=== PATIENT | male | born 1950 | race Caucasian/White ===

== ENCOUNTER 2017-08-20 01:23 | Inpatient (IN) | payer OTHER, MEDICARE ==
[2017-08-20] VITALS (16 sets, daily range): BP systolic 62–171; BP diastolic 25–97; PULSE 78–135; RESP 16–34; TEMP 98.4; O2SAT 0–99
[~2017-08-20] VITALS: Ht 172.7 cm; Wt 73.0 kg
[~2017-08-20 01:23] MED LIST: AMLO5 PO; CLON.5 PO; DIAZ5 PO; FOLI5CAP PO; GABA100C2 PO; LISI-360 PO; PERC5TAB12 PO; PRED5TAB PO; PRIL20CA PO; TAMS0.4C67 PO
[2017-08-20] MEDS ORDERED: SODIUM CHLOR 0.9% 1000 ML INJ 1,000 ML IV SCH ×2 (01:31→05:14)
[2017-08-20] MEDS ORDERED: PROPOFOL 500 MG/50 ML INJ 50 ML ONE (01:38)
[2017-08-20] MEDS ORDERED: NOREPINEPHRINE 4 MG/4 ML AMP ONE (01:45)
[2017-08-20] MEDS ORDERED: SODIUM CHLORIDE 0.9% FLUSH 10 ML FLUSH IV FLUSH PRN ×2 (01:45→05:15)
[2017-08-20] MEDS ORDERED: SODIUM CHLORIDE 0.9% FLUSH 10 ML FLUSH IVF PRN (01:45)
[2017-08-20 02:11] LABS: AUTOMATED NEUTROPHIL # 16.4 TH/MM3 (1.8-7.7); BASOPHIL % 0.2 % (0.0-2.0); EOSINOPHIL # 0.3 TH/MM3 (0-0.4); EOSINOPHIL % 1.3 % (0.0-4.0); HEMATOCRIT 36.7 % (39.0-51.0); HEMOGLOBIN 11.7 GM/DL (13.0-17.0); LYMPHOCYTE # 1.6 TH/MM3 (1.0-4.8); MEAN CELL VOLUME 88.7 FL (80.0-100.0); MEAN CORPUSCULAR HEMOGLOBIN 28.1 PG (27.0-34.0); MEAN CORPUSCULAR HGB CONC 31.7 % (32.0-36.0); MEAN PLATELET VOLUME 11.3 FL (7.0-11.0); MONO % 8.5 % (0.0-8.0); MONOCYTE # 1.7 TH/MM3 (0-0.9); PLATELET COUNT 96 TH/MM3 (150-450); RED BLOOD COUNT 4.14 MIL/MM3 (4.50-5.90); RED CELL DISTRIBUTION WIDTH 16.9 % (11.6-17.2)
[2017-08-20] MEDS ORDERED: SODIUM BICARBONATE 8.4% INJ 50 MEQ/50 ML SYR IV PUSH ONE (02:15)
[2017-08-20] MEDS ORDERED: VANCOMYCIN INJ 1,750 MG in SODIUM CHLORID 0.9% 500 ML INJ 500 ML IV ONE (02:15)
[2017-08-20] MEDS ORDERED: CEFEPIME INJ 2,000 MG in SODIUM CHLORIDE 0.9% INJ 100 ML IV ONE (02:15)
--- NOTE | 2017-08-20 02:41 | RADRPT ---
EXAM DATE/TIME: 08/20/2017 02:12 [facility] COMPARISON: CHEST SINGLE AP, October 06, 2014, 22:19. INDICATIONS : Post intubation and post central line placement. MEDICAL HISTORY : SURGICAL HISTORY : Non-responsive. ENCOUNTER: Initial ACUITY: 1 day PAIN SCORE: Non-responsive. LOCATION: Bilateral chest FINDINGS: A single view of the chest demonstrates an endotracheal tube in good position. NG in stomach. Right c entral line in superior vena cava. Minimal dependent atelectasis. No pneumothorax or effusion. No con solidation. CONCLUSION: 1. Endotracheal tube and right central line in good position as above. No focal infiltrate. No pneumo thorax. Jeremy Garcia MD on August 20, 2017 at 2:37 Board Certified Radiologist. This report was verified electronically.
[2017-08-20 02:46] LABS: ALBUMIN 1.2 GM/DL (3.4-5.0); ALT (GPT) 691 U/L (12-78); BICARBONATE 12.6 MEQ/L (21.0-32.0); BLOOD UREA NITROGEN 121 MG/DL (7-18); CALCIUM 7.3 MG/DL (8.5-10.1); CHLORIDE 107 MEQ/L (98-107); CREATININE 3.86 MG/DL (0.60-1.30); GLOMERULAR FILTRATION RATE 16 ML/MIN (>89); GLUCOSE,RANDOM 67 MG/DL (74-106); SODIUM (NA) 146 MEQ/L (136-145)
[2017-08-20 02:51] LABS: LACTIC ACID SEPSIS PROTOCOL 11.9 mmol/L (0.4-2.0)
[2017-08-20 03:02] LABS: ALKALINE PHOSPHATASE 79 U/L (45-117); AST (GOT) 2743 U/L (15-37); TOTAL BILIRUBIN ADULT 0.9 MG/DL (0.2-1.0); TOTAL PROTEIN 5.8 GM/DL (6.4-8.2)
--- NOTE | 2017-08-20 03:18 | PD ---
HPI Chief Complaint: Altered Mental Status Time Seen by Provider: 01:28 Travel History International Travel<30 days: No (gertrude) Contact w/Intl Traveler<30days: No (GERTRUDE ) Traveled to known affect area: No (gertrude) History of Present Illness HPI The patient 67 years old. He arrives by EMS. The story is very limited. He lives in a long-term hotel on each side. 911 was called by the residential care facility manager. The patient was found unresponsive in his bathroom evidently by visiting friends. It is unknown when he was last seen normal. PD reports the patient's acquaintances were suspicious for drug abuse. PD notes there was no drug paraphernalia or drug seen in the residents. EMS gave Narcan and there was no response. The patient had a pulse throughout the episode. His GCS was 3 throughout the prehospital course. The patient was intubated in field. Heart rate was approximately 100-120 in route here. No blood pressure was obtainable in route. Pt had a pulse throughout transport. A 7 5 endotracheal tube was positioned without difficulty. The patient upon arrival to the ED was found to have intact endotracheal tube with breath sounds present bilaterally. Pulse was about 110. First blood pressure was 70/40. PFSH Past Medical History Medical History: Unable to Obtain Anemia: Yes (LOW IRON AND LOW B12) Anxiety: Yes Cirrhosis: No COPD: Yes Cerebrovascular Accident: No Diminished Hearing: No GERD: Yes Hepatitis: Yes (C) Hypertension: Yes Kidney Stones: Yes Myocardial Infarction: No Past Surgical History Surgical History: Unable to Obtain Other Surgery: Yes (LITHOTRIPSY ) Social History Alcohol Use: Yes (2 SHOTS AT LUNCH 10/03/14) Tobacco Use: Yes (20 CIGS EVERY 3 DAYS) Substance Use: No (UTO) Allergies-Medications (Allergen,Severity, Reaction): Coded Allergies: No Allergy Information Available (Unverified , 08/20/17) Reported Meds & Prescriptions Reported Meds & Active Scripts Active Valium (Diazepam) 5 Mg Tab 5 Mg PO QID PRN Percocet 5-325 mg (Oxycodone/Acetaminophen) Oxycodone 5/325 Acetaminophen Tab 1- 2 Tab PO Q4H PRN Percocet 5-325 mg (Oxycodone/Acetaminophen) Oxycodone 5/325 Acetaminophen Tab 1 Tab PO Q6H PRN Reported Norvasc (Amlodipine Besylate) 5 Mg Tab 5 Mg PO DAILY Prednisone 5 Mg Tab 0.5 Tab PO DAILY Folic Acid 5 Mg Cap 1 Cap PO DAILY Klonopin (Clonazepam) 0.5 Mg Tab 0.5 Mg PO HS Neurontin 100 mg Cap (Gabapentin) 100 Mg Cap 250 Mg PO BID Flomax (Tamsulosin HCl) 0.4 Mg Cap 0.4 Mg PO DAILY Prilosec 20 mg (Omeprazole) 20 Mg Cap 20 Mg PO DAILY Lisinopril 10 mg (Lisinopril) 10 Mg Tab 1 Tab PO DAILY Review of Systems ROS Limitations: Intubated Physical Exam Narrative GENERAL: 67-year-old male well-nourished well-developed GCS 3 T SKIN: Warm and dry. HEAD: Atraumatic. Normocephalic. EYES: Pupils equal and round. No scleral icterus. No injection or drainage. ENT: No nasal bleeding or discharge. Mucous membranes pink and moist. NECK: Trachea midline. No JVD. CARDIOVASCULAR: Regular rate and rhythm. RESPIRATORY: No accessory muscle use. Clear to auscultation. Breath sounds equal bilaterally. GASTROINTESTINAL: Abdomen soft, non-tender, nondistended. Hepatic and splenic margins not palpable. MUSCULOSKELETAL: Extremities without clubbing, cyanosis, or edema. No obvious deformities. NEUROLOGICAL: Awake and alert. No obvious cranial nerve deficits. Motor grossly within normal limits. Five out of 5 muscle strength in the arms and legs. Normal speech. PSYCHIATRIC: Appropriate mood and affect; insight and judgment normal. Data Data Last Documented VS Vital Signs Date Time Temp Pulse Resp B/P (MAP) Pulse Ox O2 Delivery O2 Flow Rate FiO2 08/20/17 02:44 135 171/89 (116) 08/20/17 02:13 16 08/20/17 02:06 98.4 08/20/17 02:00 100 08/20/17 01:55 97 Ventilator Orders Orders Chest, Single Ap (08/20/17 01:31) Arterial Blood Gas (Abg) (08/20/17 01:31) Ecg Monitoring (08/20/17 01:31) Iv Access Insert/Monitor (08/20/17 01:31) Ng Gastric Tube Insert/Monitor (08/20/17 01:31) Urinary Catheter Insert/Apply (08/20/17 01:31) Oximetry (08/20/17 01:31) Oxygen Administration (08/20/17:31) Sodium Chloride 0.9% Flush (Ns Flush) (08/20/17 01:45) Electrocardiogram (08/20/17:31) Complete Blood Count With Diff (08/20/17:31) Comprehensive Metabolic Panel (08/20/17:) Creatine Kinase (Cpk) (08/20/17:31) Prothrombin Time / Inr (Pt) (08/20/17:31) Act Partial Throm Time (Ptt) (08/20/17:31) Troponin I (08/20/17:) Thyroid Stimulating Hormone (08/20/17:31) Urinalysis - C+S If Indicated (08/20/17:) Lactic Acid Sepsis Protocol (08/20/17:) Blood Culture (08/20/17:) Ct Brain W/O Iv Contrast(Rout) (08/20/17:31) Sodium Chloride 0.9% Flush (Ns Flush) (08/20/17 01:45) Sodium Chlor 0.9% 1000 Ml Inj (Ns 1000 M (08/20/17 01:31) Drug Screen, Random Urine (08/20/17:31) Alcohol (Ethanol) (08/20/17:31) Propofol 500 Mg/50 Ml Inj (Diprivan 500 (08/20/17 01:38) Norepinephrine Inj (Levophed Inj) (08/20/17 01:45) Sodium Bicarbonate 8.4% Inj (Sodium Bica (08/20/17 02:15) Cefepime Inj (Maxipime Inj) (08/20/17 02:15) Vancomycin Inj (Vancomycin Inj) (08/20/17 02:15) Lactated Ringer's 1000 Ml Inj (Lr 1000 M (08/20/17 03:30) Lactated Ringer's 1000 Ml Inj (Lr 1000 M (08/20/17 03:30) Admit Order (Ed Use Only) (08/20/17 ) Licensed Club Manager / Telemetry CALI.Q8H (08/20/17 03:19) Vital Signs (Adult) Q4H (08/20/17 03:19) Diet Npo (08/20/17 Breakfast) Activity Bed Rest (08/20/17 03:19) Notify Dr: Other (08/20/17 03:19) CKMB (08/20/17 01:55) CKMB% (08/20/17 01:55) Labs Laboratory Tests Test 08/20/17 01:55 08/20/17 01:58 White Blood Count 20.0 TH/MM3 Red Blood Count 4.14 MIL/MM3 Hemoglobin 11.7 GM/DL Hematocrit 36.7 % Mean Corpuscular Volume 88.7 FL Mean Corpuscular Hemoglobin 28.1 PG Mean Corpuscular Hemoglobin Concent 31.7 % Red Cell Distribution Width 16.9 % Platelet Count 96 TH/MM3 Mean Platelet Volume 11.3 FL Neutrophils (%) (Auto) 82.0 % Lymphocytes (%) (Auto) 8.0 % Monocytes (%) (Auto) 8.5 % Eosinophils (%) (Auto) 1.3 % Basophils (%) (Auto) 0.2 % Neutrophils # (Auto) 16.4 TH/MM3 Lymphocytes # (Auto) 1.6 TH/MM3 Monocytes # (Auto) 1.7 TH/MM3 Eosinophils # (Auto) 0.3 TH/MM3 Basophils # (Auto) 0.0 TH/MM3 CBC Comment AUTO DIFF Differential Total Cells Counted 100 Neutrophils % (Manual) 38 % Band Neutrophils % 31 % Lymphocytes % 6 % Monocytes % 9 % Neutrophils # (Manual) 17.0 TH/MM3 Metamyelocytes 14 % Promyelocytes 2 % Nucleated Red Blood Cells 1 /100 WBC Differential Comment FINAL DIFF MANUAL Toxic Granulation 1+ Toxic Vacuolation PRESENT Dohle Bodies PRESENT Platelet Estimate LOW Platelet Morphology Comment ENLARGED Vincent Cells 2+ Acanthocytes OCC Keratocytes OCC Prothrombin Time 13.4 SEC Prothromb Time International Ratio 1.3 RATIO Activated Partial Thromboplast Time 32.4 SEC Blood Urea Nitrogen 121 MG/DL Creatinine 3.86 MG/DL Random Glucose 67 MG/DL Total Protein 5.8 GM/DL Albumin 1.2 GM/DL Calcium Level 7.3 MG/DL Alkaline Phosphatase 79 U/L Aspartate Amino Transf (AST/SGOT) 2743 U/L Alanine Aminotransferase (ALT/SGPT) 691 U/L Total Bilirubin 0.9 MG/DL Sodium Level 146 MEQ/L Potassium Level 5.0 MEQ/L Chloride Level 107 MEQ/L Carbon Dioxide Level 12.6 MEQ/L Anion Gap 26 MEQ/L Estimat Glomerular Filtration Rate 16 ML/MIN Lactic Acid Level 11.9 mmol/L Protein Corrected Calcium 8.0 MG/DL Total Creatine Kinase 6330 U/L Creatine Kinase MB 107.1 NG/ML Creatine Kinase MB % 1.7 % Troponin I 1.18 NG/ML Thyroid Stimulating Hormone 3rd Gen 0.617 uIU/ML Ethyl Alcohol Level LESS THAN 3 MG/DL Blood Gas Puncture Site RT FEMORAL Blood Gas Patient Temperature 98.6 Blood Gas HCO3 13 mmol/L Blood Gas Base Excess -14.6 mmol/L Blood Gas Oxygen Saturation 71 % Arterial Blood pH 7.09 Arterial Blood Partial Pressure CO2 46 mmHg Arterial Blood Partial Pressure O2 60 mmHG Arterial Blood Oxygen Content 9.9 Vol % Arterial Blood Carboxyhemoglobin 0.0 % Arterial Blood Methemoglobin 0.6 % Blood Gas Hemoglobin 9.8 G/DL Oxygen Delivery Device VENTILATOR Blood Gas Ventilator Setting Blood Gas Inspired Oxygen 100 % [facility] Medical Decision Making Medical Screen Exam Complete: Yes Emergency Medical Condition: Yes Medical Record Reviewed: Yes Differential Diagnosis Infection, cardiac arrest, multiorgan dysfunction syndrome, drug overdose Narrative Course CBC & BMP Diagram 08/20/17 01:55 31% bands Total Protein 5.8 L, Albumin 1.2 L, Calcium Level 7.3 *L, Alkaline Phosphatase 79, Aspartate Amino Transf (AST/SGOT) 2743 H, Alanine Aminotransferase (ALT/SGPT ) 691 H, Total Bilirubin 0.9 Lactic acid 11.9 Troponin is 1.18 Alcohol is less than 3 7. BE -14, pO2 60 = VBG results CK is 6,330 4 L IV fluids, 2 normal saline, 2 lactated Ringer's Patient started on Levophed drip 100 milliequivalents sodium bicarb administered Right internal jugular triple-lumen started Patient has not made urine Cefepime and vancomycin started Blood cultures drawn EKG reveals ST depressions in multiple anteriorly, rate 130 Last Impressions Chest X-Ray 08/20/17 0131 Signed Impressions: Service Date/Time: Sunday, August 20, 2017 02:12 - CONCLUSION: 1. Endotracheal tube and right central line in good position as above. No focal infiltrate. No pneumothorax. Jeremy Garcia MD Patient will be admitted to the cardiac cath tech service. Discussed with Dr. Meza. Critical Care Narrative Aggregate critical care time was 50 minutes. Time to perform other separately billable procedures was not included in the critical care time. My time did not include minutes spent treating any other patients simultaneously or on activities that did not directly contribute to the patient's treatment. The services I provided to this patient were to treat and/or prevent clinically significant deterioration that could result in: Cardiopulmonary arrest, fatality I provided critical care services requiring my management, as noted below: Chart data review, documentation time, medication orders and management, vital sign assessments/reviewing monitor data, ordering and reviewing lab tests, ordering and interpreting/reviewing x-rays and diagnostic studies, care of the patient and discussion of the patient with the admitting physicians. Procedures Procedure Narrative After the risks and benefits were discussed the following procedure was performed: CENTRAL VENOUS LINE: The site was prepped with Betadine and sterilely draped. It was infiltrated with 1% lidocaine plain. The deep vein was cannulated using normal Seldinger technique. A central line was placed in the right IJ site and secured with simple interrupted suture. The site was sterilely dressed. The patient tolerated the procedure well. Sepsis Criteria SIRS Criteria (2 or more): Heart rate over 90, WBC > 80181, < 4000 or > 10% bands Sepsis Criteria (SIRS+source): Infect source susp/known Severe Sepsis (+one): Lactate >2 Septic Shock Criteria: Lactic acid >=4 Multiple Organ Dysfunction Syn: Evidence -2 organs failing Criteria Outcome: Meets multiple organ dys. criteria Diagnosis Primary Impression: Sepsis with multiple organ dysfunction (MOD) Additional Impressions: Respiratory arrest Renal failure Qualified Codes: N19 - Unspecified kidney failure Admitting Information Admitting Physician Requests: Admit Kody Chung MD August 20, 2017 03:18
[2017-08-20 03:21] LABS: TROPONIN I 1.18 NG/ML (0.02-0.05)
[2017-08-20 03:26] LABS: BANDS 31 % (0-6); CORRECTED NUCLEATED RBC 1 /100 WBC (0-0); LYMPHOCYTES 6 % (9-44); METAMYELOCYTES 14 % (0-1); MONOCYTES 9 % (0-8); NUCLEATED RED BLOOD CELL 1 (0-0); POLYS (SEG NEUTROPHILS) 38 % (16-70); PROMYELOCYTES 2 % (0-0)
[2017-08-20 03:28] LABS: BURR CELLS 2+ (NORMAL)
[2017-08-20 03:29] LABS: DOHLE BODIES PRESENT (NONE SEEN); TOXIC GRANULATION 1+ (NORMAL)
[2017-08-20 03:30] LABS: ACANTHOCYTES OCC (NORMAL); KERATOCYTES OCC (NORMAL); TOXIC VACUOLATION PRESENT (NONE SEEN)
[2017-08-20] MEDS ORDERED: LACTATED RINGER'S 1000 ML INJ 1,000 ML IV ONE ×2 (03:30)
[2017-08-20 04:15] LABS: INTERNATIONAL NORMALIZED RATIO 1.3 RATIO; PROTHROMBIN TIME - PATIENT 13.4 SEC (9.8-11.6)
[2017-08-20] MEDS ORDERED: TERBUTALINE INJ 1 MG/ML AMP SQ PRN ×2 (05:00→08:45)
[2017-08-20] MEDS ORDERED: PROPOFOL 200 MG/20 ML AMP IV ONE (05:00)
[2017-08-20] MEDS ORDERED: NOREPINEPHRINE-DEXTROSE DRIP 250 ML IV PRN (05:00)
[2017-08-20] MEDS ORDERED: MIDAZOLAM HCL 2 MG/2 ML VIAL IV PUSH PRN (05:15)
[2017-08-20] MEDS ORDERED: LACTULOSE SYRUP 20 GM/30 ML CUP PO PRN (05:15)
[2017-08-20] MEDS ORDERED: SENNOSIDES 8.6 MG TAB PO PRN (05:15)
[2017-08-20] MEDS ORDERED: RESP: ALBUTEROL 2.5 MG/IPRATROPIUM 0.5 MG NEB (PRN) INH (05:15)
[2017-08-20] MEDS ORDERED: MAGNESIUM HYDROXIDE SUSP 30 ML CUP PO PRN (05:15)
[2017-08-20] MEDS ORDERED: ONDANSETRON ODT 4 MG TAB PO PRN (05:15)
[2017-08-20] MEDS ORDERED: BISACODYL 10 MG SUPP RECTAL PRN (05:15)
[2017-08-20] MEDS ORDERED: PROPOFOL 1000 MG/100 ML INJ 100 ML IV PRN (05:15)
[2017-08-20] MEDS ORDERED: CHLORHEXIDINE GLUCONATE 2 % 1 PACK (2 CLOTHS) TOP PRN (05:15)
[2017-08-20] MEDS ORDERED: NURSING INFORMATION XX SCH (05:15)
[2017-08-20] MEDS ORDERED: ACETAMINOPHEN 325 MG TAB PO PRN (05:15)
--- NOTE | 2017-08-20 05:30 | RADRPT ---
EXAM DATE/TIME: 08/20/2017 05:01 [facility] COMPARISON: No previous studies available for comparison. INDICATIONS : Unresponsive; post code. RADIATION DOSE: 56.35 CTDIvol (mGy) MEDICAL HISTORY : Non-responsive. SURGICAL HISTORY : Non-responsive. ENCOUNTER: Initial ACUITY: 1 day PAIN SCALE: Non-responsive LOCATION: cranial TECHNIQUE: Multiple contiguous axial images were obtained of the head. Using automated exposure control and adj ustment of the mA and/or kV according to patient size, radiation dose was kept as low as reasonably a chievable to obtain optimal diagnostic quality images. DICOM format image data is available electro nically for review and comparison. FINDINGS: No prior study for comparison. There is a 2.8 cm hemorrhage in the left parieto-occipital region with surrounding wedge-shaped low attenuation areas characteristic of infarction which measures up to abo ut 7.6 x 2.9 cm in maximal dimension. There is also some intraventricular hemorrhage measuring about 1 cm in the area of foramen of [place]. There is also faint hemorrhage in the left cerebellar hemisphere measuring 1.4 cm. No significant mas s effect or midline shift. On the right side date is a more linear area of decreased attenuation in the posterior MCA distributi on, probably subacute infarct. CONCLUSION: 1. Subacute hemorrhagic infarct in the left parieto-occipital region as above. Smaller infarct in the posterior right MCA distribution. Probable small hemorrhagic infarct left cerebellar hemisphere. Sma ll amount of intraventricular hemorrhage. Jeremy Garcia MD on August 20, 2017 at 5:24 Board Certified Radiologist. This report was verified electronically.
--- NOTE | 2017-08-20 05:33 | HHI.HP ---
HPI Service Critical Care Medicine Primary Care Physician No Primary Care Physician Admission Diagnosis Respiratory Arrest; AMS; Renal Failure Diagnosis: Travel History International Travel<30 Days: No (leodan) Contact w/Intl Traveler <30 Da: No (LEODAN ) Traveled to Known Affected Are: No (leodan) History of Present Illness 67 years old man who lives in a long-term hotel was found unresponsive. 911 was called by the facility operations manager. The patient was found unresponsive in his bathroom by visiting friends. It is unknown when he was last seen normal. Police Department reports the patient's acquaintances were suspicious for drug abuse. However there was no drug paraphernalia or drug seen in the residents. EMS gave Narcan without any response. The patient had a pulse throughout the episode. His GCS was 3 throughout the prehospital course. He was intubated in field. Heart rate was approximately 100-120 in route here. No blood pressure was obtainable in route. A 7 5 endotracheal tube was positioned without difficulty by EMT. Review of Systems ROS Unobtainable patient's intubated and comatose Past Family Social History Allergies: Coded Allergies: No Allergy Information Available (Unverified , 08/20/17) Past Medical History Anemia: Yes (LOW IRON AND LOW B12) Anxiety: Yes COPD: Yes GERD: Yes Hepatitis: Yes (C) Hypertension: Yes Kidney Stones: Yes Past Surgical History Other Surgery: Yes (LITHOTRIPSY ) Reported Medications Reported Meds & Active Scripts Active Valium (Diazepam) 5 Mg Tab 5 Mg PO QID PRN Percocet 5-325 mg (Oxycodone/Acetaminophen) Oxycodone 5/325 Acetaminophen Tab 1- 2 Tab PO Q4H PRN Percocet 5-325 mg (Oxycodone/Acetaminophen) Oxycodone 5/325 Acetaminophen Tab 1 Tab PO Q6H PRN Reported Norvasc (Amlodipine Besylate) 5 Mg Tab 5 Mg PO DAILY Prednisone 5 Mg Tab 0.5 Tab PO DAILY Folic Acid 5 Mg Cap 1 Cap PO DAILY Klonopin (Clonazepam) 0.5 Mg Tab 0.5 Mg PO HS Neurontin 100 mg Cap (Gabapentin) 100 Mg Cap 250 Mg PO BID Flomax (Tamsulosin HCl) 0.4 Mg Cap 0.4 Mg PO DAILY Prilosec 20 mg (Omeprazole) 20 Mg Cap 20 Mg PO DAILY Lisinopril 10 mg (Lisinopril) 10 Mg Tab 1 Tab PO DAILY Active Ordered Medications Current Medications Medications (Trade) Dose Ordered Sig/Magalys Route PRN Reason Start Time Stop Time Status Last Admin Dose Admin Sodium Chloride (NS Flush) 2 ml UNSCH PRN IVF FLUSH AFTER USING IV ACCESS 08/20/17 01:45 08/20/17 02:17 Sodium Chloride (NS Flush) 2 ml UNSCH PRN IV FLUSH FLUSH AFTER USING IV ACCESS 08/20/17 01:45 08/20/17 02:17 Norepinephrine Bitartrate 250 ml @ 7.5 mls/hr TITRATE PRN IV Blood pressure management 08/20/17 05:00 Terbutaline Sulfate (Brethine Inj) 1 mg UNSCH PRN SQ For Extravasation 08/20/17 05:00 Family History Unobtainable Social History Alcohol Use: Yes (2 SHOTS AT LUNCH 10/03/14) Tobacco Use: Yes (20 CIGS EVERY 3 DAYS) Substance Use: No (UTO) Physical Exam Vital Signs Vital Signs Date Time Temp Pulse Resp B/P (MAP) Pulse Ox O2 Delivery O2 Flow Rate FiO2 08/20/17 05:05 100 08/20/17 05:00 0 100 08/20/17 04:20 120 16 105/67 (80) Ventilator 08/20/17 04:20 118 100/57 (71) 08/20/17 03:37 95 18 86/48 (61) 08/20/17 02:44 135 171/89 (116) 08/20/17 02:30 117 163/65 (97) 08/20/17 02:13 123 16 99/65 (76) 08/20/17 02:06 98.4 111 92/53 (66) 08/20/17 02:00 100 08/20/17 01:55 120 18 72/34 (47) 97 Ventilator 100 08/20/17 01:38 123 18 62/25 (37) 95 Ventilator 100 08/20/17 01:26 133 91 08/20/17 01:20 0 100 Physical Exam GENERAL: Elderly appearing male, well-nourished well-developed SKIN: Warm and dry. HEAD: Atraumatic. Normocephalic. EYES: Pupils equal and round. No scleral icterus. No injection or drainage. ENT: No nasal bleeding or discharge. Mucous membranes pink and moist. NECK: Trachea midline. No JVD. CARDIOVASCULAR: Regular rate and rhythm. RESPIRATORY: No accessory muscle use. Clear to auscultation. Breath sounds equal bilaterally. GASTROINTESTINAL: Abdomen soft, non-tender, nondistended. Hepatic and splenic margins not palpable. MUSCULOSKELETAL: Extremities without clubbing, cyanosis, or edema. No obvious deformities. NEUROLOGICAL: GCS 3 T, sedated and intubated Laboratory Laboratory Tests Test 08/20/17 01:55 08/20/17 01:58 08/20/17 04:15 08/20/17 04:45 White Blood Count 20.0 Red Blood Count 4.14 Hemoglobin 11.7 Hematocrit 36.7 Mean Corpuscular Volume 88.7 Mean Corpuscular Hemoglobin 28.1 Mean Corpuscular Hemoglobin Concent 31.7 Red Cell Distribution Width 16.9 Platelet Count 96 Mean Platelet Volume 11.3 Neutrophils (%) (Auto) 82.0 Lymphocytes (%) (Auto) 8.0 Monocytes (%) (Auto) 8.5 Eosinophils (%) (Auto) 1.3 Basophils (%) (Auto) 0.2 Neutrophils # (Auto) 16.4 Lymphocytes # (Auto) 1.6 Monocytes # (Auto) 1.7 Eosinophils # (Auto) 0.3 Basophils # (Auto) 0.0 CBC Comment AUTO DIFF Differential Total Cells Counted 100 Neutrophils % (Manual) 38 Band Neutrophils % 31 Lymphocytes % 6 Monocytes % 9 Neutrophils # (Manual) 17.0 Metamyelocytes 14 Promyelocytes 2 Nucleated Red Blood Cells 1 Differential Comment FINAL DIFF MANUAL Toxic Granulation 1+ Toxic Vacuolation PRESENT Dohle Bodies PRESENT Platelet Estimate LOW Platelet Morphology Comment ENLARGED Kirk Cells 2+ Acanthocytes OCC Keratocytes OCC Prothrombin Time 13.4 Prothromb Time International Ratio 1.3 Activated Partial Thromboplast Time 32.4 Blood Urea Nitrogen 121 Creatinine 3.86 Random Glucose 67 Total Protein 5.8 Albumin 1.2 Calcium Level 7.3 Alkaline Phosphatase 79 Aspartate Amino Transf (AST/SGOT) 2743 Alanine Aminotransferase (ALT/SGPT) 691 Total Bilirubin 0.9 Sodium Level 146 Potassium Level 5.0 Chloride Level 107 Carbon Dioxide Level 12.6 Anion Gap 26 Estimat Glomerular Filtration Rate 16 Lactic Acid Level 11.9 10.8 Protein Corrected Calcium 8.0 Total Creatine Kinase 6330 Creatine Kinase MB 107.1 Creatine Kinase MB % 1.7 Troponin I 1.18 Thyroid Stimulating Hormone 3rd Gen 0.617 Ethyl Alcohol Level LESS THAN 3 Blood Gas Puncture Site RT FEMORAL RT FEMORAL Blood Gas Patient Temperature 98.6 98.6 Blood Gas HCO3 13 12 Blood Gas Base Excess -14.6 -13.2 Blood Gas Oxygen Saturation 71 99 Arterial Blood pH 7.09 7.28 Arterial Blood Partial Pressure CO2 46 27 Arterial Blood Partial Pressure O2 60 413 Arterial Blood Oxygen Content 9.9 15.9 Arterial Blood Carboxyhemoglobin 0.0 0.0 Arterial Blood Methemoglobin 0.6 0.7 Blood Gas Hemoglobin 9.8 10.7 Oxygen Delivery Device VENTILATOR VENTILATOR Blood Gas Ventilator Setting Blood Gas Inspired Oxygen 100 100 Date/Time Source Procedure Growth Status 08/20/17 01:56 Blood Peripheral Aerobic Blood Culture Pending Received 08/20/17 01:56 Blood Peripheral Anaerobic Blood Culture Pending Received Result Diagram: 08/20/17 0155 08/20/17 0155 Imaging Last 24 hours Impressions Chest X-Ray 08/20/17 0131 Signed Impressions: Service Date/Time: Sunday, August 20, 2017 02:12 - CONCLUSION: 1. Endotracheal tube and right central line in good position as above. No focal infiltrate. No pneumothorax. Jeremy Garcia MD Caprini VTE Risk Assessment Caprini VTE Risk Assessment: Mod/High Risk (score >= 2) Caprini Risk Assessment Model Point Value = 1 Point Value = 2 Point Value = 3 Point Value = 5 Age 41-60 Minor surgery BMI > 25 kg/m2 Swollen legs Varicose veins or History of unexplained or recurrent spontaneous Oral contraceptives or hormone replacement Sepsis (< 1 month) Serious lung disease, including pneumonia (< 1 month) Abnormal pulmonary function Acute myocardial infarction Congestive heart failure (< 1 month) History of inflammatory bowel disease Medical patient at bed rest Age 61-74 Arthroscopic surgery Major open surgery (> 45 min) Laparoscopic surgery (> 45 min) Malignancy Confined to bed (> 72 hours) Immobilizing plaster cast Central venous access Age >= 75 History of VTE Family history of VTE Factor V Leiden Prothrombin [id number] Lupus anticoagulant Anticardiolipin antibodies Elevated serum homocysteine Heparin-induced thrombocytopenia Other congenital or acquired thrombophilia Stroke (< 1 month) Elective arthroplasty Hip, pelvis, or leg fracture Acute spinal cord injury (< 1 month) Prophylaxis Regimen Total Risk Factor Score Risk Level Prophylaxis Regimen 0-1 Low Early ambulation 2 Moderate Order ONE of the following: *Sequential Compression Device (SCD) *Heparin 5000 units SQ BID 3-4 Higher Order ONE of the following medications: *Heparin 5000 units SQ TID *Enoxaparin/Lovenox 40 mg SQ daily (WT < 150 kg, CrCl > 30 mL/min) *Enoxaparin/Lovenox 30 mg SQ daily (WT < 150 kg, CrCl > 10-29 mL/min) *Enoxaparin/Lovenox 30 mg SQ BID (WT < 150 kg, CrCl > 30 mL/min) AND/OR *Sequential Compression Device (SCD) 5 or more Highest Order ONE of the following medications: *Heparin 5000 units SQ TID (Preferred with Epidurals) *Enoxaparin/Lovenox 40 mg SQ daily (WT < 150 kg, CrCl > 30 mL/min) *Enoxaparin/Lovenox 30 mg SQ daily (WT < 150 kg, CrCl > 10-29 mL/min) *Enoxaparin/Lovenox 30 mg SQ BID (WT < 150 kg, CrCl > 30 mL/min) AND *Sequential Compression Device (SCD) Assessment and Plan Assessment and Plan Respiratory failure -Intubated for an airway protection -No weaning until neurologically improve -Vent bundle -DuoNeb's as needed Altered mental status hemorrhagic conversion of left MCA stroke Possible anoxic brain damage -unknown downtime -Coags within normal limits -Transfuse platelets to keep count above 100 -SBP goal less than 140 -Neurosurgery consultation -No surgical interventions indicated at this time -Drug screen pending -Not a candidate for TPA due to unknown downtime and ICH -Neuro checks per unit protocol -Neurology consultation Hypertension -Labetalol and hydralazine to keep his BP less than 140 Rhabdomyolysis -Monitor trend of CPK -Sodium bicarbonate drip for urine alkalinization Metabolic acidosis -Frequent ABGs -Sodium bicarb drip Leukocytosis -Reactive? -Afebrile -Follow-up cultures -He has received antibiotics in the emergency department, will hold at this time until culture results or signs of infection. DVT GI prophylaxis -Velasquez's and SCDs -No pharmacological DVT prophylaxis due to ICH -Pepcid Critical Care: The total critical care time was 35 minutes. Time to perform other separately billable procedures was not included in the critical care time. Adan Meza MD August 20, 2017 05:33
[2017-08-20] MEDS ORDERED: LABETALOL HCL 100 MG/20 ML VIAL IV PUSH PRN (05:45)
[2017-08-20] MEDS ORDERED: hydrALAZINE HCL 20 MG/ML VIAL IV PUSH PRN (05:45)
--- NOTE | 2017-08-20 05:47 | RADRPT ---
EXAM DATE/TIME: 08/20/2017 05:10 [facility] COMPARISON: No previous studies available for comparison. INDICATIONS : Unresponsive; post code. RADIATION DOSE: 5.15 CTDIvol (mGy) ; Combined studies - Thorax/Abdomen/Pelvis MEDICAL HISTORY : Non-responsive. SURGICAL HISTORY : Non-responsive. ENCOUNTER: Initial ACUITY: 1 day PAIN SCALE: Non-responsive LOCATION: chest TECHNIQUE: Volumetric scanning of the chest was performed. Using automated exposure control and adjustment of t he mA and/or kV according to patient size, radiation dose was kept as low as reasonably achievable to obtain optimal diagnostic quality images. DICOM format image data is available electronically for r eview and comparison. Follow-up recommendations for detected pulmonary nodules are based at a minimum on nodule size and pa tient risk factors according to Fleischner Society Guidelines. FINDINGS: They are multiple small areas of lung consolidation in both lungs that are peripheral measuring 2 x 2 centimeters in diameter. There is underlying emphysema. There is also pleural based 1.3 cm mass in t he upper left anterior chest. There are calcified granulomata in the lungs and hilar regions there are calcified lymph nodes. Dense coronary calcifications. No acute bony abnormalities. Several posterior left rib fractures with nonu nion. No significant pleural effusion. See abdomen CT for findings below the diaphragm. CONCLUSION: 1. Multifocal small areas of consolidation in the lungs, mostly peripheral. Primary differential diag nosis is infection. Cannot exclude embolic disease. 2. 1.3 cm solid pleural based mass upper left anterior chest of unknown etiology. Next endotracheal t ube and nasogastric tube in good position. Small hiatal hernia. 3. Mild emphysema. Jeremy Garcia MD on August 20, 2017 at 5:38 Board Certified Radiologist. This report was verified electronically.
[2017-08-20] MEDS ORDERED: HYDROCORTISONE SOD SUCCINATE 100 MG VIAL IV PUSH SCH (06:00)
[2017-08-20] MEDS ORDERED: HEPARIN SODIUM - SQ 10,000 UNITS/ML VIAL SQ SCH (06:00)
--- NOTE | 2017-08-20 06:12 | RADRPT ---
EXAM DATE/TIME: 08/20/2017 05:10 [facility] COMPARISON: CT ABDOMEN & PELVIS W/O CONTRAST, October 03, 2014, 16:25. CHEST PA & LAT, October 10, 2014, 14:17. INDICATIONS : Unresponsive; post code. ORAL CONTRAST: No oral contrast ingested. RADIATION DOSE: 5.15 CTDIvol (mGy) ; Combined studies - Thorax/Abdomen/Pelvis MEDICAL HISTORY : Non-responsive. SURGICAL HISTORY : Non-responsive. ENCOUNTER: Initial ACUITY: 1 day PAIN SCALE: Non-responsive LOCATION: abdomen TECHNIQUE: Volumetric scanning of the abdomen and pelvis was performed. Using automated exposure control and ad justment of the mA and/or kV according to patient size, radiation dose was kept as low as reasonably achievable to obtain optimal diagnostic quality images. DICOM format image data is available electro nically for review and comparison. FINDINGS: There is a severe compression deformity of T12 which is stable since 2014. No fractures of the left n inth and 10th ribs posteriorly with nonunion. Patchy basilar air space disease present. Calcified granulomata in the liver and spleen. Adrenals mildly enlarged. No acute findings in the kid neys or pancreas. No calcified gallstones. NG coiled in the stomach. There is mild gaseous distention of small bowel with multiple air-fluid levels. There is also gas and fluid in the colon. Findings probably represent a diffuse ileus. CONCLUSION: 1. Diffuse ileus in small and large bowel. No free fluid or free air. 2. Mild anasarca. 3. NG tip in stomach. Basal airspace disease as above. Berry catheter in bladder. Jeremy Garcia MD on August 20, 2017 at 6:04 Board Certified Radiologist. This report was verified electronically.
[2017-08-20 07:29] LABS: BACTERIA, URINE MOD /hpf; BILIRUBIN, URINE NEG (NEG); BLOOD, URINE LARGE (NEG); GLUCOSE,URINE NEG (NEG); KETONE, URINE TRACE mg/dL (NEG); MUCUS URINE FEW /lpf (OCC); NITRITE,URINE NEG (NEG); SQUAMOUS EPITHELIAL CELL URINE 4 /hpf (0-5); URINE LEUKOCYTE ESTERASE SMALL (NEG); WHITE BLOOD CELL CLUMPS MANY
[2017-08-20 07:30] LABS: URINE COLOR LIGHT-BROWN (YELLW/STRAW)
[2017-08-20] MEDS ORDERED: GLUCAGON 1 MG/ML VIAL OTHER PRN (07:30)
[2017-08-20] MEDS ORDERED: Vancomycin Consult Pharmacy 1 EA OTHER SCH (07:30)
[2017-08-20] MEDS ORDERED: INSULIN NovoLIN REGULAR SUPPLEMENTAL SCALE SQ SCH (07:30)
[2017-08-20] MEDS ORDERED: DEXTROSE 50% IN WATER 50 ML VIAL(D50) IV PUSH PRN (07:30)
[2017-08-20] MEDS ORDERED: EPINEPHrine HCL (1:10,000) 1 MG/10 ML SYRINGE ONE ×4 (07:32→09:13)
[2017-08-20] MEDS ORDERED: SODIUM BICARBONATE 8.4% INJ 150 MEQ in DEXTROSE 5% IN WATE 1000ML INJ 1,000 ML IV SCH ×2 (08:00)
[2017-08-20] MEDS ORDERED: CHLORHEXIDINE 0.12% (ORAL KIT) 15 ML CUP MT SCH (08:00)
[2017-08-20] MEDS ORDERED: CALCIUM CHLORIDE 10% SOLN 1 GRAM/10 ML SYR ONE (08:08)
[2017-08-20] MEDS ORDERED: PHENYLEPHRINE INJ 40 MG in DEXTROSE 5% IN WATE 500 ML INJ 496 ML IV PRN ×2 (08:45)
[2017-08-20] MEDS ORDERED: SENNOSIDES SYRUP 8.8 MG/5 ML CUP PO SCH (09:00)
[2017-08-20] MEDS ORDERED: PIPERACIL-TAZO 4.5 GM PREMIX 100 ML IV SCH (09:00)
[2017-08-20] MEDS ORDERED: FAMOTIDINE 20 MG/2 ML VIAL IV PUSH SCH (09:00)
[2017-08-20] MEDS ORDERED: DOCUSATE SODIUM 100 MG/10 ML UDC PO SCH (09:00)
[2017-08-20] MEDS ORDERED: DOCUSATE SODIUM 50 MG/SENNA 8.6 MG TAB PO SCH (09:00)
[2017-08-20] MEDS ORDERED: SODIUM CHLORIDE 0.9% FLUSH 10 ML FLUSH IV FLUSH SCH (09:00)
[2017-08-20] MEDS ORDERED: ARTIFICIAL TEARS OPTH SOLN 15 ML BTL EACH EYE SCH (09:00)
--- NOTE | 2017-08-20 09:20 | MB ---
cc: Guillermo Lockwood MD DATE: 08/20/2017 HISTORY OF PRESENT ILLNESS: A 67-year-old man was found in his apartment down. CT showed a left posterior MCA infarct with some hemorrhagic conversion and also appears to be some slight hemorrhage in the left cerebellum. He has been coded here several times this morning. PAST MEDICAL HISTORY: There is a history of anxiety, anemia, COPD, GERD, hepatitis C, hypertension, kidney stones. SOCIAL HISTORY: Drinks daily. He is a smoker. ALLERGIES: NO KNOWN DRUG ALLERGIES. MEDICATIONS: Evidently on valium, Percocet, Norvasc, prednisone, Klonopin, folic acid, Neurontin, Flomax, Prilosec, lisinopril at home. PHYSICAL EXAMINATION: VITAL SIGNS: Currently has just gone pulseless. They have been coding him. His pulse noted before was very low at about 20, pulse has been as high as 120. He has been afebrile. He is on a vent. Blood pressure 72/37. Could not detect a heart beat at this time. He is not on sedatives, but he is flaccid throughout. No ankle clonus. Pupils are 3 mm bilaterally. Eyes fixed. LABORATORY DATA: White count is 20,000, hematocrit 36, platelet count 96,000. Urine drug screen positive for opiates only. UA is trace ketones. Basic metabolic profile, his creatinine was 3.86. Lactic acid is 11. LFTs are very high. AST 2700. CPK 6000. Troponin 1.18. TSH normal. Coags are normal. ABG initially 7.09, 46, 60. CAT scan is noted. IMPRESSION: Left middle cerebral artery infarct. It appears he probably is not going to make it through the code; however. In addition with the code, may have some anoxic damage. Will have to see how that works out before we decide to do any other workup. I note his coags were normal here. Guillermo Lockwood MD DJM/TL , 08:45 AM , 09:19 AM
--- NOTE | 2017-08-20 09:36 | PD.CONS ---
HPI Consult Requested By Review of Systems ROS Limitations: Clinical Condition, Altered Mental Status, Unresponsive Past Family Social History Allergies: Coded Allergies: No Allergy Information Available (Unverified , 08/20/17) Physical Exam Laboratory Laboratory Tests Test 08/20/17 01:55 08/20/17 01:58 08/20/17 04:15 08/20/17 04:45 White Blood Count 20.0 Red Blood Count 4.14 Hemoglobin 11.7 Hematocrit 36.7 Mean Corpuscular Volume 88.7 Mean Corpuscular Hemoglobin 28.1 Mean Corpuscular Hemoglobin Concent 31.7 Red Cell Distribution Width 16.9 Platelet Count 96 Mean Platelet Volume 11.3 Neutrophils (%) (Auto) 82.0 Lymphocytes (%) (Auto) 8.0 Monocytes (%) (Auto) 8.5 Eosinophils (%) (Auto) 1.3 Basophils (%) (Auto) 0.2 Neutrophils # (Auto) 16.4 Lymphocytes # (Auto) 1.6 Monocytes # (Auto) 1.7 Eosinophils # (Auto) 0.3 Basophils # (Auto) 0.0 CBC Comment AUTO DIFF Differential Total Cells Counted 100 Neutrophils % (Manual) 38 Band Neutrophils % 31 Lymphocytes % 6 Monocytes % 9 Neutrophils # (Manual) 17.0 Metamyelocytes 14 Promyelocytes 2 Nucleated Red Blood Cells 1 Differential Comment FINAL DIFF MANUAL Toxic Granulation 1+ Toxic Vacuolation PRESENT Dohle Bodies PRESENT Platelet Estimate LOW Platelet Morphology Comment ENLARGED Vincent Cells 2+ Acanthocytes OCC Keratocytes OCC Prothrombin Time 13.4 Prothromb Time International Ratio 1.3 Activated Partial Thromboplast Time 32.4 Blood Urea Nitrogen 121 Creatinine 3.86 Random Glucose 67 Total Protein 5.8 Albumin 1.2 Calcium Level 7.3 Alkaline Phosphatase 79 Aspartate Amino Transf (AST/SGOT) 2743 Alanine Aminotransferase (ALT/SGPT) 691 Total Bilirubin 0.9 Sodium Level 146 Potassium Level 5.0 Chloride Level 107 Carbon Dioxide Level 12.6 Anion Gap 26 Estimat Glomerular Filtration Rate 16 Lactic Acid Level 11.9 10.8 Protein Corrected Calcium 8.0 Total Creatine Kinase 6330 Creatine Kinase MB 107.1 Creatine Kinase MB % 1.7 Troponin I 1.18 Thyroid Stimulating Hormone 3rd Gen 0.617 Ethyl Alcohol Level LESS THAN 3 Blood Gas Puncture Site RT FEMORAL RT FEMORAL Blood Gas Patient Temperature 98.6 98.6 Blood Gas HCO3 13 12 Blood Gas Base Excess -14.6 -13.2 Blood Gas Oxygen Saturation 71 99 Arterial Blood pH 7.09 7.28 Arterial Blood Partial Pressure CO2 46 27 Arterial Blood Partial Pressure O2 60 413 Arterial Blood Oxygen Content 9.9 15.9 Arterial Blood Carboxyhemoglobin 0.0 0.0 Arterial Blood Methemoglobin 0.6 0.7 Blood Gas Hemoglobin 9.8 10.7 Oxygen Delivery Device VENTILATOR VENTILATOR Blood Gas Ventilator Setting Blood Gas Inspired Oxygen 100 100 Test 08/20/17 06:20 08/20/17 06:30 08/20/17 06:45 08/20/17 08:38 Urine Color LIGHT-BROWN Urine Turbidity CLOUDY Urine pH 7.0 Urine Specific [place] 1.018 Urine Protein 300 Urine Glucose (UA) NEG Urine Ketones TRACE Urine Occult Blood LARGE Urine Nitrite NEG Urine Bilirubin NEG Urine Urobilinogen 2.0 Urine Leukocyte Esterase SMALL Urine RBC Urine WBC Urine WBC Clumps MANY Urine Squamous Epithelial Cells 4 Urine Bacteria MOD Urine Mucus FEW Microscopic Urinalysis Comment CATH-CULTURE IND Urine Opiates Screen POS Urine Barbiturates Screen NEG Urine Amphetamines Screen NEG Urine Benzodiazepines Screen NEG Urine Cocaine Screen NEG Urine Cannabinoids Screen NEG Blood Gas Puncture Site RT FEMORAL Blood Gas Patient Temperature 98.6 Blood Gas HCO3 18 Blood Gas Base Excess -7.4 Blood Gas Oxygen Saturation 98 Arterial Blood pH 7.32 Arterial Blood Partial Pressure CO2 35 Arterial Blood Partial Pressure O2 455 Arterial Blood Oxygen Content 14.0 Arterial Blood Carboxyhemoglobin 0.0 Arterial Blood Methemoglobin 1.3 Blood Gas Hemoglobin 9.3 Oxygen Delivery Device AMBU Blood Gas Liter Flow 15 Blood Gas Inspired Oxygen 100 Date/Time Source Procedure Growth Status 08/20/17 01:56 Blood Peripheral Aerobic Blood Culture Pending Received 08/20/17 01:56 Blood Peripheral Anaerobic Blood Culture Pending Received 08/20/17 06:20 Urine Catheterized Urine Legionella Antigen Pending Received 08/20/17 06:20 Urine Catheterized Urine Streptococcus pneumoniae Antigen (M Pending Received Result Diagram: 08/20/17 0155 08/20/17 0155 Mejia Gonzales MD August 20, 2017 09:36
[2017-08-20] MEDS ORDERED: RESP: ALBUTEROL 2.5 MG/IPRATROPIUM 0.5 MG NEB (SCH) NEB (10:00)
--- NOTE | 2017-08-20 19:47 | EKG ---
Date Performed: 08/20/2017 Time Performed: 01:29:46 PTAGE: 67 years EKG: Supraventricular tacycardia. CONSIDER ANTEROSEPTAL MYOCARDIAL INFARCTION-age Undetermined S T DEVIATION AND MODERATE T-WAVE ABNORMALITY, CONSIDER CONSIDER INFERIOR ISCHEMIA VERSES BASELINE SATHISH FACT. ABNORMAL ECG PREVIOUS TRACING : 10/10/2014 13.32.56 DOCTOR: Jefry Cervantes Interpretating Date/Time 08/20/2017 19:45:51
[2017-08-21] MEDS ORDERED: CHLORHEXIDINE GLUCONATE 2 % 1 PACK (2 CLOTHS) TOP SCH (04:00)
== END 2017-08-20 09:23 | disposition expired | DRG 208 ==
LOC: NEPC 01:23 → NEDA 03:21 → HIME 05:25
PROVIDERS: ADMIT Internal Medicine Critical Care Medicine; ATTEND Internal Medicine Critical Care Medicine
PROC: 5A1935Z Respiratory Ventilation, Less than 24 Consecutive Hours (ICD-10-PCS; principal; 2017-08-20)
DX: J96.90 Respiratory failure, unspecified, unspecified whether with hypoxia or hypercapnia (principal); I63.511 Cerebral infarction due to unspecified occlusion or stenosis of right middle cerebral artery; R40.2113 Coma scale, eyes open, never, at hospital admission; R40.2213 Coma scale, best verbal response, none, at hospital admission; R40.2313 Coma scale, best motor response, none, at hospital admission; E87.2 Acidosis; M62.82 Rhabdomyolysis; I10 Essential (primary) hypertension; J44.9 Chronic obstructive pulmonary disease, unspecified; D72.829 Elevated white blood cell count, unspecified; F17.210 Nicotine dependence, cigarettes, uncomplicated; K21.9 Gastro-esophageal reflux disease without esophagitis; Z79.891 Long term (current) use of opiate analgesic; Z79.52 Long term (current) use of systemic steroids; Z79.899 Other long term (current) drug therapy; Z86.19 Personal history of other infectious and parasitic diseases
CPT/HCPCS: 36556; 36600; 70450; 71045; 71250; 74176; 80053; 80307; 81001; 82550; 82552; 82805; 82948; 83605; 84443; 84484; 85007; 85027; 85610; 85730; 87040; 87086; 87205; 87449; 87641; 92950; 93005; 94002; 96365; 96375; J0171; J0692; J1720; J3370; J7030; J7040; J7070; J7120